=== PATIENT | male | born 1960 | race Caucasian/White ===

== ENCOUNTER 2020-11-20 06:18 | Emergency (ER) | payer BC ==
[2020-11-20] MEDS ORDERED: Metoclopramide 10 MG/10 ML UDCUP ONE (06:45)
[2020-11-20] MEDS ORDERED: diphenhydrAMINE 50 MG/ML VIAL ONE (06:45)
[2020-11-20] MEDS ORDERED: Ketorolac Tromethamine 30 MG/ML VIAL ONE (06:45)
[2020-11-20] MEDS ORDERED: Metoclopramide HCl 10 MG/2 ML VIAL ONE (06:45)
== END 2020-11-20 07:35 | disposition home or self-care (01) ==
LOC: ERS 06:18
DX: R51.9 Headache, unspecified (principal); H53.149 Visual discomfort, unspecified; R11.2 Nausea with vomiting, unspecified; I48.91 Unspecified atrial fibrillation
CPT/HCPCS: 70450; 96365; 96375; J1200; J1885; J2765